=== PATIENT | male | born 1995 | race Caucasian/White ===

== ENCOUNTER 2020-03-31 07:20 | Emergency (ER) | payer OTHER ==
[2020-03-31] MEDS ORDERED: VENTOLIN HFA18 GM INH (08:45)
[2020-03-31] MEDS ORDERED: ZPAK PO (08:45)
[2020-03-31 08:59] LABS: CORONAVIRUS 2019 SARS-COV-2 POSITIVE (NEGATIVE); INFLUENZA A NAA NEGATIVE (NEGATIVE)
[2020-03-31] MEDS ORDERED: MEDROL 4MG DOSEP4 MG PO (09:33)
[2020-03-31] MEDS ORDERED: TESSALON PERLE100 M1 PO (09:33)
== END 2020-03-31 11:28 | disposition home or self-care (01) ==
LOC: FER 07:20
PROVIDERS: Emergency Medicine
DX: U07.1 COVID-19 (principal); J45.909 Unspecified asthma, uncomplicated
CPT/HCPCS: 71046; J7050; M0239; U0002

== ENCOUNTER 2020-04-24 05:11 | Emergency (ER) | payer OTHER ==
[~2020-04-24 05:11] MED LIST: MEDROL 4MG DOSEP4 MG PO; TESSALON PERLE100 M1 PO; VENTOLIN HFA18 GM INH; ZPAK PO
[2020-04-24] MEDS ORDERED: PREDNISONE 20MG20 MG PO (07:27)
== END 2020-04-24 08:11 | disposition home or self-care (01) ==
LOC: FER 05:11
DX: R05 Cough (principal); R51.9 Headache, unspecified; J45.909 Unspecified asthma, uncomplicated; Z79.899 Other long term (current) drug therapy; Z86.16 Personal history of COVID-19
CPT/HCPCS: 71045